=== PATIENT | female | born 1970 | race Caucasian/White ===

== ENCOUNTER 2017-03-01 19:20 | Observation (INO) | payer BC ==
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
--- NOTE | ~2017-03-01 | DS ---
Discharge Summary [facility] [address] [place]. [address] NAME: CYN CROWDER : 68 STATUS : DIS Jessie PAT#: [id number] AGE: 46 ADM/REG DATE : 03/01/17 MR#: [id number] REPORT SERV DATE: 03/03/17 DICTATED BY: RONDA DAVISON DATE: 03/02/17 REPORT STATUS : Draft TRANSCRIBED BY: MODL DATE: 03/02/17 ADMISSION DATE: 03/01/2017 DISCHARGE DATE: 03/02/2017 REASON FOR ADMISSION: Atypical chest pain and acute on chronic COPD exacerbation. HISTORY OF PRESENT ILLNESS: Please refer to Dr. Braden Lazo's history and physical dated 03/02/2017 for complete details regarding the patient's admission. In brief, the patient was admitted to the Hospitalist Service for management of acute on chronic COPD exacerbation and chest pain. HOSPITAL COURSE: The patient had uncomplicated hospital course. Dr. Lazo started the patient on doxycycline and low-dose steroids. Dr. Lazo had ordered a stress test. She had a nuclear stress test, which showed low-risk vasodilator test. She had been off before multiple times to go out cigarette smoking. In fact, I visited her room three times and she was out of her room smoking every time. During the last time, I ran into her , who had called her to come back to the room. She came back to the room walking just fine, did not complain of any chest pain or shortness of breath. Her symptoms had resolved. She had some diminished breath sounds on exam with some mild wheezing. GIOVANNA was 1:40. She did have a CT angio of her chest done, which did not show a pulmonary embolism, but did show multiple semi-solid infiltrative changes particularly in the upper and mid lung zimmer, probably infectious. Recommend appropriate interval medical therapy, and if not cleared, reassess with a need to exclude the possibility of diffuse metastatic disease. There are heavy atherosclerotic changes in the coronary arteries. Given the fact that the patient does have a family history of lung cancer and the fact that she smokes heavily, there is always a risk of her having lung cancer. I stress heavily that we will treat her for an infectious etiology and that she will need to follow up with Dr. Robles in six weeks to have a repeat CT scan of her chest to exclude any type of metastatic disease. She and her understand this. Given the fact that she is symptom free, she has reached maximal hospitalization and will be discharged today in a stable condition. DISCHARGE DIAGNOSES: Acute on chronic chronic obstructive pulmonary disease exacerbation secondary to ongoing tobacco abuse; atypical chest pain; coronary artery disease, status post myocardial infarction, status post percutaneous coronary intervention, on aspirin and Effient. No evidence of toe vasculitis. No evidence of lymphedema. Ongoing tobacco abuse. PROCEDURES: Include nuclear stress test, CT angio of the chest, lower extremity arterial Dopplers. DISCHARGE MEDICATIONS: Include aspirin 81 mg once a day, diltiazem 180 mg daily, TriCor 145 mg daily, Neurontin 600 mg every four hours, Bland p.r.n. pain, lisinopril 10 mg daily, Lopressor 12.5 mg twice a day, Prilosec 40 mg daily, Effient 10 mg daily, Pravachol 20 mg daily, Glucophage 500 mg twice a day, hormone-based cream, nitroglycerin p.r.n., prednisone 40 mg once a day for four days, and doxycycline 100 mg twice a day for seven days. FOLLOWUP: The patient will follow up with Dr. Robles for repeat CT scan of her chest in Discharge Summary [address] [address] NAME: CYN CROWDER : 68 STATUS : DIS Jessie PAT#: [id number] AGE: 46 ADM/REG DATE : 03/01/17 MR#: [id number] REPORT SERV DATE: 03/03/17 DICTATED BY: RONDA DAVISON DATE: 03/02/17 REPORT STATUS : Draft TRANSCRIBED BY: BERNICE DATE: 03/02/17 about six weeks. DICTATED BY: MD KATHIE Samuels/BERNICE Ronda Davison MD / [id number] CC: Timo Walker MAHMOOD
[~2017-03-01 19:20] MED LIST: BIOIDENTICAL PO; PRILOSEC40 MG PO; ZANTAC 150 PO
[2017-03-01 19:48] LABS: BASOPHILS 0.4 %; BASOPHILS ABSOLUTE 0.04 10/3/uL (0.0-0.16); EOSINOPHILS 1.6 %; EOSINOPHILS ABSOLUTE 0.15 10/3/uL (0.0-0.53); ER CBC TAT 0 Hrs 07 Mins; HEMATOCRIT 43.7 % (36.0-48.0); HEMOGLOBIN 14.9 g/dL (12.0-16.0); IMMATURE GRANULOCYTES 0.2 %; IMMATURE GRANULOCYTES ABSOLUTE 0.02 10/3/uL (0.0-0.11); LYMPHOCYTES 45.1 %; LYMPHOCYTES ABSOLUTE 4.33 10/3/uL (0.67-4.30); MEAN CORPUS HGB CONC 34.1 g/dL (32.0-36.0); MEAN CORPUSCULAR HEMOGLOB 31.1 pg (26.0-34.0); MEAN CORPUSCULAR VOLUME 91.2 fL (80-100); MEAN PLATELET VOLUME 10.2 fL (9.2-13.0); MONOCYTES 4.9 %; MONOCYTES ABSOLUTE 0.47 10/3/uL (0.21-1.20); NEUTROPHILS 47.8 %; PLATELET COUNT 313 10/3/uL (150-400); RBC DISTRIBUTION WIDTH 13.8 % (12.0-16.0); RED CELL COUNT 4.79 10/6/uL (4.0-5.6); WHITE BLOOD CELLS 9.6 10/3/uL (4.5-10.5)
[2017-03-01 19:49] LABS: MANUAL DIFF NO %
[2017-03-01 19:57] LABS: PARTIAL THROMBO TIME 25.3 SEC (22.5-37.2); PROTIME (NOT ORD) 13.5 SEC (12.0-14.5)
[2017-03-01 20:04] LABS: BUN (BLOOD UREA NITROGEN) 7 MG/DL (6-23); CALCIUM, SERUM 8.7 MG/DL (8.5-10.4); CHEST PAIN PROFILE TAT 0 Hrs 23 Mins; CHLORIDE, SERUM 111 MMOL/L (96-112); CO2 (CARBON DIOXIDE) 25 MMOL/L (24-34); CREATININE 0.64 MG/DL (0.55-1.02); GFR AFRICAN AMERICAN 123 ML/MIN (>=60); GFR NON AFRICAN AMERICAN 106 ML/MIN (>=60); POTASSIUM, SERUM 3.9 MMOL/L (3.5-5.3); SODIUM, SERUM 142 MMOL/L (135-148); TROPONIN I <0.02 NG/ML (<0.05)
[2017-03-01 20:06] LABS: GLUCOSE, SERUM 114 MG/DL (60-99)
[2017-03-02] MEDS ORDERED: PRILOSEC40 MG PO (00:14)
[2017-03-02] MEDS ORDERED: GLUCPH PO (00:15)
[2017-03-02] MEDS ORDERED: ASAB PO (00:15)
[2017-03-02] MEDS ORDERED: EFFIENT10 PO (00:16)
[2017-03-02] MEDS ORDERED: HRT BASE (00:16)
[2017-03-02] MEDS ORDERED: CARDIZEM LA180 MG PO (00:17)
[2017-03-02] MEDS ORDERED: TRICOR145 PO (00:17)
[2017-03-02] MEDS ORDERED: LOP25 PO (00:18)
[2017-03-02] MEDS ORDERED: PRIN10 PO (00:19)
[2017-03-02] MEDS ORDERED: NORCO1 TA2 PO (00:20)
[2017-03-02] MEDS ORDERED: PRAVAC PO (00:20)
[2017-03-02] MEDS ORDERED: NEUR600 PO (00:21)
[2017-03-02] MEDS ORDERED: NITROQUICK0.4 MG SL (00:21)
[2017-03-02 09:05] LABS: BASOPHILS 0.5 %; BASOPHILS ABSOLUTE 0.04 10/3/uL (0.0-0.16); EOSINOPHILS 1.4 %; HEMATOCRIT 41.6 % (36.0-48.0); IMMATURE GRANULOCYTES 0.1 %; IMMATURE GRANULOCYTES ABSOLUTE 0.01 10/3/uL (0.0-0.11); LYMPHOCYTES 40.8 %; LYMPHOCYTES ABSOLUTE 2.99 10/3/uL (0.67-4.30); MEAN CORPUS HGB CONC 33.7 g/dL (32.0-36.0); MEAN CORPUSCULAR HEMOGLOB 30.7 pg (26.0-34.0); MEAN CORPUSCULAR VOLUME 91.2 fL (80-100); MEAN PLATELET VOLUME 10.4 fL (9.2-13.0); MONOCYTES 5.1 %; MONOCYTES ABSOLUTE 0.37 10/3/uL (0.21-1.20); NEUTROPHILS 52.1 %; NEUTROPHILS ABSOLUTE 3.81 10/3/uL (2.02-8.40); PLATELET COUNT 261 10/3/uL (150-400); RBC DISTRIBUTION WIDTH 13.6 % (12.0-16.0); RED CELL COUNT 4.56 10/6/uL (4.0-5.6); WHITE BLOOD CELLS 7.3 10/3/uL (4.5-10.5)
[2017-03-02 09:06] LABS: MANUAL DIFF NO %
[2017-03-02 09:11] LABS: PARTIAL THROMBO TIME 26.7 SEC (22.5-37.2)
[2017-03-02 09:12] LABS: INTERNATIONAL NORMAL RATI 1.1 UNITS (-); PROTIME (NOT ORD) 14.1 SEC (12.0-14.5)
[2017-03-02 09:28] LABS: ALBUMIN 3.1 G/DL (3.5-5.0); ALKALINE PHOSPHATASE 49 U/L (45-117); BUN (BLOOD UREA NITROGEN) 5 MG/DL (6-23); CALCIUM, SERUM 8.3 MG/DL (8.5-10.4); CHLORIDE, SERUM 113 MMOL/L (96-112); CO2 (CARBON DIOXIDE) 24 MMOL/L (24-34); GFR AFRICAN AMERICAN 126 ML/MIN (>=60); GFR NON AFRICAN AMERICAN 109 ML/MIN (>=60); GLUCOSE, SERUM 95 MG/DL (60-99); SGOT(AST) 14 U/L (5-40); SGPT(ALT) 17 U/L (5-65); SODIUM, SERUM 144 MMOL/L (135-148); TOTAL BILIRUBIN 0.5 MG/DL (0-1.2); TOTAL PROTEIN 6.1 G/DL (6.0-8.5); TROPONIN I <0.02 NG/ML (<0.05)
[2017-03-02 10:14] LABS: SED RATE 7 MM/HR (0-20)
[2017-03-02 11:43] LABS: ANA PATTERN NUCLEOLAR; ANA TITER 1:40 TITER
[2017-03-02 12:07] LABS: PROCALCITONIN <0.05 ng/mL (<0.5)
[2017-03-02 13:35] LABS: C-REACTIVE PROTEIN 4.9 MG/L (<8.0)
[2017-03-02] MEDS ORDERED: P20 PO (17:16)
[2017-03-02] MEDS ORDERED: VIBRATAB100 MG PO (17:16)
== END 2017-03-02 18:51 | disposition home or self-care (01) ==
LOC: ER 19:20 → 5NO 23:50
PROVIDERS: Emergency Medicine; Internal Medicine
DX: R07.89 Other chest pain (principal); I25.10 Atherosclerotic heart disease of native coronary artery without angina pectoris; J44.1 Chronic obstructive pulmonary disease with (acute) exacerbation; I25.2 Old myocardial infarction; I50.9 Heart failure, unspecified; J18.9 Pneumonia, unspecified organism; F17.210 Nicotine dependence, cigarettes, uncomplicated; Z79.82 Long term (current) use of aspirin; Z79.899 Other long term (current) drug therapy; Z79.2 Long term (current) use of antibiotics; Z90.49 Acquired absence of other specified parts of digestive tract; Z90.710 Acquired absence of both cervix and uterus; Z88.5 Allergy status to narcotic agent; Z82.49 Family history of ischemic heart disease and other diseases of the circulatory system; Z98.890 Other specified postprocedural states
CPT/HCPCS: 71020; 71275; 78452; 80048; 80053; 83516; 83735; 83880; 84145; 84443; 84484; 85025; 85610; 85652; 85730; 86039; 86140; 93005; 93017; 93923; 93970; 94640; 99285; A9270-GY; A9502; G0378; J0153; Q9967